=== PATIENT | male | born 1970 | race Caucasian/White ===

== ENCOUNTER → 2018-07-02 | Day surgery (SDC) | payer BC ==
[2018-07-01 10:01] LABS: BASOPHILS % 0.5 % (0.0-1.0); EOSINOPHILS # (AUTO) 0.1 (0.0-0.4); EOSINOPHILS % 1.5 % (0.0-6.0); HEMATOCRIT 44.4 % (38.2-49.6); HEMOGLOBIN 14.9 g/dL (14.0-18.0); LYMPHOCYTES # (AUTO) 2.4 (1.0-3.2); LYMPHOCYTES % 40.4 % (18.0-39.1); MEAN CORPUSCULAR HEMOGLOBIN 30.3 pg (28-32); MEAN CORPUSCULAR HGB CONC 33.6 g/dL (31-35); MEAN CORPUSCULAR VOLUME 90.4 fL (81-99); MONOCYTES # (AUTO) 0.5 (0.2-0.8); MONOCYTES % 7.8 % (4.4-11.3); NEUTROPHILS # (AUTO) 2.9 (2.1-6.9); NEUTROPHILS % 49.3 % (38.7-80.0); PLATELET COUNT 255 x10e3/uL (140-360); RED BLOOD COUNT 4.91 x10e6/uL (4.3-5.7); RED CELL DISTRIBUTION WIDTH 12.1 % (11.7-14.4)
[2018-07-01 10:25] LABS: ANION GAP 11.7 mmol/L (8-16); BLOOD UREA NITROGEN 14 mg/dL (7-26); BUN/CREATININE RATIO 14 (6-25); CALCIUM 9.5 mg/dL (8.4-10.2); CARBON DIOXIDE 26 mmol/L (22-29); CHLORIDE 102 mmol/L (98-107); CREATININE, SERUM 0.99 mg/dL (0.72-1.25); EST GLOMERULAR FILTRATION RATE > 60 ML/MIN (60-); GLUCOSE 94 mg/dL (74-118); POTASSIUM 3.7 mmol/L (3.5-5.1); SODIUM 136 mmol/L (136-145)
[~2018-07-02] MED LIST: ACETAMINOPHEN/CODEINE 300MG - 30MG TAB ONE; BACITRACIN 50,000 UNIT VIAL ONE; BUPIVACAINE 0.25%/EPI 30ML SDV INJ ONE; CEFAZOLIN SOD 1 GM VIAL ONE; CEFAZOLIN SOD IV ONE; D5W IV ONE; DEXAMETHASONE SOD PHOS INJ 4 MG/ML VIAL ONE; FENTANYL CITRATE/PF 100MCG/2 ML INJ ONE; HYDROGEN PEROXIDE 120 ML BTL ONE; KETOROLAC TROMETHAMINE 30 MG/ML VIAL ONE; LIDOCAINE HCL 2% LOCAL INJ 5 ML SDV VIAL INJ ONE; MEPERIDINE HCL INJ 25 MG/ML VIAL ONE; MIDAZOLAM HCL 2 MG/2 ML VIAL ONE; NEOSTIGMINE 1 MG/ML 10ML VIAL ONE; ONDANSETRON HCL INJ 2 MG/ML VIAL ONE; PROPOFOL IV EMULSION 10 MG/ML 20 ML VIAL ONE; SEVOFLURANE INHAL SOLN 250 ML PEN BTL ONE
--- OUTSIDE RECORDS SUMMARY | 2018-07-02 09:37 | XMS REPORT ---
Author Author [facility] Address Unknown Phone Unavailable Care Team Providers Care Lead Network Engineer Name Role Phone Unavailable Unavailable Payers Payer Name Policy Type Policy Number Effective Date Expiration Date Problems This patient has no known problems. Allergies, Adverse Reactions, Alerts Allergy Name Allergy Type Status Severity Reaction(s) Onset Date Inactive Date Treating Clinician Comments No Known Allergies DA Active U 2017-11-12 00:00:00 Medications This patient has no known medications.
[2018-07-02 13:35] VITALS: BP 118/76
--- NOTE | 2018-07-02 14:55 | Operative Report ---
DATE OF PROCEDURE: July 02, 2018 PREOPERATIVE DIAGNOSES 1. 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 2. Small-bowel obstruction. POSTOPERATIVE DIAGNOSES 1. 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 2. Small-bowel obstruction. PROCEDURE PERFORMED: Repair of right inguinal hernia with Ultra Pro hernia system, oval type. ANESTHESIA: General. ESTIMATED BLOOD LOSS: Minimal. DRAINS: None. COMPLICATIONS: None. INDICATIONS AND FINDINGS: A 47-year-old male had been having abdominal pains in the epigastric region associated with an incarceration and the appearance of a bulge in the right groin. He was told he had a hernia 2 years ago. Did not seek repair. The periods of incarceration associated with pain in the epigastric region had been getting more frequent, and the patient now decided he wanted repair of right inguinal hernia. INTRAOPERATIVE FINDINGS: The patient had a right inguinal hernia with a very, very thin hernia sac that appeared to be almost the sac thickness of a child. Through this sac, the patient was incarcerated with his small bowel. There was no femoral herniation. The floor appeared to be weak in addition to that too. DESCRIPTION OF PROCEDURE: With the patient lying on the operating table in the supine position and after administration of general anesthesia, he was prepped and draped for repair of right inguinal hernia. Pre-emptive anesthesia was given with 0.25% Marcaine with epinephrine as an ilioinguinal nerve block and incisional nerve block. A transverse groin incision was made and deepened through the skin and subcutaneous tissue until Robert fascia was identified. This was incised along the course of its fibers transecting the external inguinal ring. Medial and lateral leads were developed. The cord was mobilized at the level of the pubic tubercle and retracted away from the operative field by a Tiffany drain. The cremaster was incised. An indirect hernia sac was found, and it was seen as described. It was empty. The sac was intimately attached to the that was sharply. Then we ligated the neck with 2-0 silk. The peritoneum which was entered during the dissection of the sac was closed with 2-0 running Vicryl. After we did that, then we developed the preperitoneal space carefully to prevent re-entry of the peritoneum. We were successful in doing so. At this point, we went ahead and deployed the mesh with the underlay part of the mesh over the direct space and the overlay part of the mesh over the inguinal canal floor. A slit was made to accommodate the cord. Then the mesh was secured to the local tissues using a series of interrupted 2-0 Ethibond suture. We had to split the mesh to accommodate the cord twice. After we did that, we had a correct sponge and instrument counts correct twice. We irrigated the wound and closed the wound using 2-0 Vicryl for the external oblique aponeurosis, 2-0 plain catgut for the subcutaneous tissues twice, and the skin was closed using ezequiel. At the end of the procedure, we gave him more local block with 0.25% Marcaine with epinephrine. Job#: [id number]
== END | disposition home or self-care (01) ==
LOC: OR 09:20
PROVIDERS: ATTEND Surgery
DX: K40.30 Unilateral inguinal hernia, with obstruction, without gangrene, not specified as recurrent (principal); Z01.810 Encounter for preprocedural cardiovascular examination; Z01.812 Encounter for preprocedural laboratory examination; Z87.891 Personal history of nicotine dependence
CPT/HCPCS: 36415; 49507; 80048; 85025; 88302; 93005; C1781; J0690 ×2; J1100; J1885; J2001; J2175; J2250; J2405; J2704; J2710

== ENCOUNTER 2024-05-19 10:45 | Emergency (ER) | payer BC, OTHER ==
[~2024-05-19] VITALS: Ht 185.4 cm; Wt 64.9 kg
[2024-05-19 10:50] VITALS: PULSE 61; RESP 14; TEMP 98.2; O2SAT 97
== END 2024-05-19 12:25 | disposition home or self-care (01) ==
LOC: ER 10:57
DX: S63.692A Other sprain of right middle finger, initial encounter (principal); X58.XXXA Exposure to other specified factors, initial encounter; Y92.89 Other specified places as the place of occurrence of the external cause; F17.210 Nicotine dependence, cigarettes, uncomplicated
CPT/HCPCS: 99283